=== PATIENT | male | born 1980 | race Caucasian/White ===

== ENCOUNTER 2018-10-18 05:44 | Observation (INO) | payer OTHER ==
[2018-10-18] MEDS ORDERED: SODIUM CHLORIDE 0.9% 1,000 ML IV STA (06:06)
[2018-10-18] MEDS ORDERED: ONDANSETRON 4 MG/2 ML VIAL IVP STA (06:06)
[2018-10-18] MEDS ORDERED: MORPHINE SULFATE 4 MG/ML SYRINGE IV STA (06:06)
--- NOTE | 2018-10-18 06:06 | ED ---
Nausea/Vomiting/Diarrhea HPI - General Chief complaint: Nausea/Vomiting/Diarrhea Stated complaint: Vomiting Source: patient Mode of arrival: ambulatory - History of Present Illness Initial comments: Miles is a 38 her old job and a presents the emergency department today for evaluation of persistent abdominal pain. Patient was seen and evaluated and outside hospital 2 days ago, he had labs as well as abdominal CT and was diagnosed with colitis. Patient was discharged home on Augmentin and Zofran. Patient reports he's been compliant with these medications but has had persistent abdominal pain. Patient reports the pain is not getting any worse but is not getting any better. He has persistent nausea, decreased appetite, decreased by mouth intake, he reports he had one loose stool earlier today. - Related Data Home Medications Medication Instructions Recorded Confirmed Amoxic-Pot Clav 875-125Mg 1 tab PO Q12HR 10/18/18 10/18/18 [Augmentin 875-125] Ondansetron Odt [Zofran Odt] 4 mg PO Q8H PRN 10/18/18 10/18/18 Allergies Allergy/AdvReac Type Severity Reaction Status Date / Time No Known Allergies Allergy Verified 10/18/18 07:25 Review of Systems ROS Statement: Those systems with pertinent positive or pertinent negative responses have been documented in the HPI. ROS Other: All systems not noted in ROS Statement are negative. Past Medical History Past Medical History: No Reported History History of Any Multi-Drug Resistant Organisms: None Reported Additional Past Surgical History / Comment(s): right eye surgery. Smoking Status: Former smoker Past Alcohol Use History: Daily Past Drug Use History: Marijuana General Exam - General Exam Comments Initial Comments: Physical Exam GENERAL: Appears uncomfortable, pale HENT: Normocephalic, Atraumatic. EYES: PERRL, EOMI PULMONARY: Unlabored respirations. No audible rales rhonchi or wheezing was noted. CARDIOVASCULAR: There is a regular rate and rhythm without any murmurs gallops or rubs. ABDOMEN: Soft and nontender with normal bowel sounds. SKIN: Skin is clear with no lesions or rashes and otherwise unremarkable. : Deferred NEUROLOGIC: Patient is alert and oriented x3. Moving all extremities spontaneously MUSCULOSKELETAL: Normal extremities with adequate strength and full range of motion. No lower extremity swelling or edema. No calf tenderness. PSYCHIATRIC: Normal psychiatric evaluation Course Vital Signs 10/18/18 10/18/18 05:45 06:18 Temperature 97.7 F Pulse Rate 78 69 Respiratory 18 14 Rate Blood Pressure 144/90 138/80 O2 Sat by Pulse 100 Oximetry Medical Decision Making - Medical Decision Making The patient was seen and evaluated, history is obtained from the patient and review of medical records from outside facility Patient with a known diagnosis of colitis on computed tomography scan presenting with persistent pain Repeat labs and KUB were ordered Labs resulted with mild leukocytosis, there is significant elevation in lipase greater than 1000 concerning for acute pancreatitis KUB x-rays concerning for ileus Given the patient's symptoms and diagnosis of acute pancreatitis I do feel he warrants admission to the hospital for IV fluids, pain management. This plan was discussed with the patient who is agreeable. Patient does not have a primary care physician will be admitted to the [facility]. De La Cruz - Lab Data Result diagrams: 10/18/18 06:11 10/18/18 06:11 Lab Results 10/18/18 10/18/18 10/18/18 Range/Units 06:11 06:11 06:11 WBC 10.9 H (3.8-10.6) k/uL RBC 4.35 (4.30-5.90) m/uL Hgb 13.6 (13.0-17.5) gm/dL Hct 40.9 (39.0-53.0) % MCV 93.9 (80.0-100.0) fL MCH 31.3 (25.0-35.0) pg MCHC 33.3 (31.0-37.0) g/dL RDW 13.0 (11.5-15.5) % Plt Count 297 (150-450) k/uL Neutrophils % 82 % Lymphocytes % 11 % Monocytes % 6 % Eosinophils % 0 % Basophils % 0 % Neutrophils # 8.9 H (1.3-7.7) k/uL Lymphocytes # 1.2 (1.0-4.8) k/uL Monocytes # 0.6 (0-1.0) k/uL Eosinophils # 0.0 (0-0.7) k/uL Basophils # 0.0 (0-0.2) k/uL Sodium 140 (137-145) mmol/L Potassium 4.0 (3.5-5.1) mmol/L Chloride 107 (98-107) mmol/L Carbon Dioxide 23 (22-30) mmol/L Anion Gap 10 mmol/L BUN 13 (9-20) mg/dL Creatinine 0.85 (0.66-1.25) mg/dL Est GFR (CKD-EPI)AfAm >90 (>60 ml/min/1.73 sqM) Est GFR (CKD-EPI)NonAf >90 (>60 ml/min/1.73 sqM) Glucose 118 H (74-99) mg/dL Plasma Lactic Acid Sylvain 2.0 (0.7-2.0) mmol/L Calcium 9.6 (8.4-10.2) mg/dL Total Bilirubin 1.3 (0.2-1.3) mg/dL AST 48 (17-59) U/L ALT 34 (21-72) U/L Alkaline Phosphatase 45 (38-126) U/L Total Protein 7.2 (6.3-8.2) g/dL Albumin 4.5 (3.5-5.0) g/dL Lipase 1035 H (23-300) U/L Disposition Clinical Impression: Pancreatitis, Ileus Disposition: ADMITTED IP TO THIS HOSP Condition: Stable Is patient prescribed a controlled substance at d/c from ED?: No Referrals: None,Stated [Primary Care Provider] - 1-2 days
[2018-10-18 06:35] LABS: Basophils % (A) 0 %; Eosinophils % (A) 0 %; HCT 40.9 % (39.0-53.0); HGB 13.6 gm/dL (13.0-17.5); Lymphocytes # (A) 1.2 k/uL (1.0-4.8); Lymphocytes % (A) 11 %; MCH 31.3 pg (25.0-35.0); MCHC 33.3 g/dL (31.0-37.0); MCV 93.9 fL (80.0-100.0); Mean Platelet Volume 6.6; Monocytes # (A) 0.6 k/uL (0-1.0); Monocytes % (A) 6 %; Neutrophils # (A) 8.9 k/uL (1.3-7.7); Neutrophils % (A) 82 %; Platelet Count 297 k/uL (150-450); RBC 4.35 m/uL (4.30-5.90); WBC 10.9 k/uL (3.8-10.6)
[2018-10-18 06:47] LABS: ALT 34 U/L (21-72); AST 48 U/L (17-59); African American GFR (CKD) >90 (>60 ml/min/1.73 sqM); Albumin 4.5 g/dL (3.5-5.0); Alkaline Phosphatase 45 U/L (38-126); Anion Gap 10 mmol/L; Blood Urea Nitrogen 13 mg/dL (9-20); Calcium 9.6 mg/dL (8.4-10.2); Carbon Dioxide 23 mmol/L (22-30); Chloride 107 mmol/L (98-107); Glucose 118 mg/dL (74-99); Sodium 140 mmol/L (137-145); Total Bilirubin 1.3 mg/dL (0.2-1.3); Total Protein 7.2 g/dL (6.3-8.2)
--- NOTE | 2018-10-18 07:12 | XR ---
EXAM: XR Abdomen, 1 View CLINICAL HISTORY: abdominal pain TECHNIQUE: Frontal upright view of the abdomen/pelvis. COMPARISON: No relevant prior studies available. FINDINGS: No free air. Air-fluid levels noted in nondilated bowel loops in the lower abdomen and pelvis. No suspicious calcifications. Osseous structures are unremarkable. IMPRESSION: No free air. Air-fluid levels in nondilated bowel loops in lower abdomen and pelvis may represent ileus versus enteritis. No radiographic evidence of ashley bowel obstruction. No suspicious calcifications.
[2018-10-18] MEDS ORDERED: NALOXONE 0.4 MG/ML 1 ML VIAL IV PRN (07:45)
[2018-10-18] MEDS ORDERED: HYDROmorphone 0.5 MG/0.5 ML SYRINGE IVP PRN (07:45)
[2018-10-18] MEDS: SODIUM CHLORIDE 0.9% 1,000 ML IV SCH ×3 (07:53→18:01)
[2018-10-18 08:09] LABS: Appearance,Urine Clear (Clear); Bilirubin,Urine Negative (Negative); Blood,Urine Negative (Negative); Color,Urine Yellow; Glucose,Urine (UA) Negative (Negative); Ketones,Urine 2+ (Negative); Leukocyte Esterase,Urine Negative (Negative); Nitrite,Urine Negative (Negative); PH, Urine 8.5 (5.0-8.0); Protein,Urine Trace (Negative); Specific Gravity,Urine 1.022 (1.001-1.035); Urobilinogen,Urine <2.0 mg/dL (<2.0)
--- NOTE | 2018-10-18 08:32 | US ---
EXAMINATION TYPE: US gallbladder DATE OF EXAM: 10/18/2018 COMPARISON: NONE CLINICAL HISTORY: acute pancreatitis and ileus. acute pancreatitis and ileus, abdominal pain and vom iting EXAM MEASUREMENTS: Liver Length: 14.1 cm Gallbladder Wall: 0.3 cm CBD: 0.3 cm Right Kidney: 12.5 x 3.7 x 4.2 cm Pancreas: duct = 0.3cm Liver: wnl Gallbladder: no evidence of stones Evidence for sonographic Rodriguez's sign: no CBD: appears wnl Right Kidney: cystic area upper pole = 1.7 x 1.4 x 2.0cm Visualized pancreas is unremarkable. Technologist marked a 1.7 cm simple appearing cyst anteriorly up per pole of the right kidney. IMPRESSION: No acute findings identified. No complication related to acute pancreatitis seen on image s saved.
[2018-10-18] MEDS: PANTOPRAZOLE 40 MG/10 ML VIAL IV SCH (10:37)
[2018-10-18] MEDS ORDERED: ONDANSETRON ODT 4 MG TAB PO PRN (11:16)
[2018-10-18] MEDS: ONDANSETRON 4 MG/2 ML VIAL IVP PRN ×2 (12:42→18:18)
[2018-10-18] MEDS: MORPHINE SULFATE 4 MG/ML SYRINGE IV PRN ×2 (12:43→18:18)
--- NOTE | 2018-10-18 13:51 | HP ---
HISTORY AND PHYSICAL CHIEF COMPLAINT: Abdominal pain for 2 days. HISTORY OF PRESENT ILLNESS: This is the first admission for this 38-year-old white male. Two days ago he developed generalized abdominal pain, went to the emergency room at [facility] and was told that he had "colitis." He was given medication, but the pain continued, and actually grew worse. He had diarrhea once, but he had several episodes of nausea and vomiting. He came to emergency room here. His lipase was markedly elevated along with the white count. History is not unusual. He has had no hematemesis, melena, hematochezia, fever, chills, history of pancreatitis or GI disease in the past. Gallbladder does not seem to be a culprit. He states that he does drink quite a bit of alcohol, but he does not quantify it, has never had ulcer before. REVIEW OF SYSTEMS: He has had no other symptoms. PAST MEDICAL HISTORY, FAMILY HISTORY, PERSONAL AND SOCIAL HISTORIES: Reveal that he is not on any medicine and he is not allergic to any. He has had no surgery. He does not smoke. He works as a cook. PHYSICAL EXAMINATION: Blood pressure is 138/90 with a pulse of 93, respirations of 36. He is afebrile. In general, he appeared to be well developed, well nourished, and acutely uncomfortable. Skin was dry and skin color is normal. Head, ears, eyes, nose, mouth, and throat were normal. Neck veins are not distended. Thyroid is not enlarged. Chest is clear. Cardiac exam is normal and the abdomen is soft and he is tender over the epigastrium, but seems to be a little bit more tender in the lower abdomen. There are no masses. IMPRESSION: 1. Acute abdominal pain. 2. ? of pancreatitis. 3. ? colitis. PLAN: 1. Bed rest. 2. IV fluids. 3. Analgesics. 4. GI consult. MMODL / IJN: [id number] /
[2018-10-18 17:59] VITALS: BMI 19.3
--- NOTE | 2018-10-18 22:26 | P.PN ---
Subjective Progress Note Date: 10/18/18 Attempted to see the patient today for consultation and the patient was not in his room, we'll see the patient tomorrow. Objective - Vital Signs Vital signs: Vital Signs Temp 97.7 F 10/18/18 20:51 Pulse 88 10/18/18 20:51 Resp 18 10/18/18 20:51 BP 138/86 10/18/18 20:51 Pulse Ox 100 10/18/18 20:51 Intake & Output 10/18/18 10/18/18 10/19/18 06:59 18:59 06:59 Weight 61.235 kg - Labs CBC & Chem 7: 10/18/18 06:11 10/18/18 06:11 Labs: Abnormal Lab Results - Last 24 Hours (Table) 10/18/18 10/18/18 10/18/18 Range/Units 06:11 06:11 07:50 WBC 10.9 H (3.8-10.6) k/uL Neutrophils # 8.9 H (1.3-7.7) k/uL Glucose 118 H (74-99) mg/dL Lipase 1035 H (23-300) U/L Urine pH 8.5 H (5.0-8.0) Urine Protein Trace H (Negative) Urine Ketones 2+ H (Negative)
[2018-10-19] MEDS: SODIUM CHLORIDE 0.9% 1,000 ML IV SCH ×5 (06:04→21:03)
[2018-10-19] MEDS: PANTOPRAZOLE 40 MG/10 ML VIAL IV SCH (10:05)
[2018-10-19 12:09] LABS: Basophils % (A) 0 %; Eosinophils % (A) 0 %; HCT 39.1 % (39.0-53.0); HGB 12.6 gm/dL (13.0-17.5); Lymphocytes # (A) 2.2 k/uL (1.0-4.8); Lymphocytes % (A) 27 %; MCHC 32.4 g/dL (31.0-37.0); MCV 95.7 fL (80.0-100.0); Mean Platelet Volume 6.6; Monocytes # (A) 0.5 k/uL (0-1.0); Monocytes % (A) 6 %; Neutrophils # (A) 5.2 k/uL (1.3-7.7); Neutrophils % (A) 64 %; Platelet Count 246 k/uL (150-450); RBC 4.08 m/uL (4.30-5.90); RDW 12.8 % (11.5-15.5)
[2018-10-19 13:59] VITALS: RESP 16
[2018-10-19] MEDS: ONDANSETRON 4 MG/2 ML VIAL IVP PRN (16:10)
--- NOTE | 2018-10-19 19:16 | PN ---
PROGRESS NOTE CHIEF COMPLAINT: Pancreatitis. HISTORY OF PRESENT ILLNESS: This gentleman is feeling a lot better. Pain has greatly subsided. He is not nauseated or vomiting. PHYSICAL EXAM: Abdomen is flat, nontender. Chest is clear. Cardiac exam is normal. IMPRESSION: Pancreatitis, etiology unknown. PLAN: Keep n.p.o. until he is seen by Gastroenterology in the event that they wanted to do an endoscopy to rule out ulcer disease. Otherwise, he can eat and progress his activity. MMODL / IJN: [id number] /
--- NOTE | 2018-10-19 22:23 | P.CONS ---
History of Present Illness - Reason for Consult Consult date: 10/19/18 Pancreatitis Requesting physician: Hunter De La Cruz - Chief Complaint Abdominal pain - History of Present Illness 38-year-old male who presented to the hospital with complaints of abdominal pain. Patient had been recently diagnosed with colitis approximately 3 weeks a go and treated with Augmentin. He reports developing dull pain at home prior to presentation. The pain was constant and progressive in intensity, and he describes it as of retching in quality. The patient had associated nausea and decreased oral intake. Patient denies any family history of pancreatitis. Patient still has his gallbladder. Reports drinking at least 3 beers daily for years. Bowel movements are usually one to 2 daily, with 3 nonbloody bowel movements today. He does report use aspirin occasionally for pain, but states this is a couple times per month. Laboratory evaluation on presentation was significant for WBC 11.9, hemoglobin 13.6, platelet count 297,000, total biliru bin 1.3, alkaline phosphatase 45, AST 48, ALT 34 and lipase 1035. Ultrasound of the abdomen was negative for cholelithiasis with a CBD measured at 3 mm. Patient was treated with IV fluid hydration and pain control and is currently reporting great improvement in his pain and asking for diet to be advanced. Review of Systems REVIEW OF SYSTEMS: CONSTITUTIONAL: Denies any fevers, chills, weight change or fatigue. CARDIOVASCULAR: Denies any chest pain, palpitations high or low blood pressures RESPIRATORY: Denies any shortness of breath, hemoptysis or cough. GENITOURINARY: No dysuria or hematuria. MUSCULOSKELETAL: No weakness reported. SKIN: Denies any new rashes or lesions, jaundice or pallor. PSYCHIATRIC: Denies any depression or anxiety. NEUROLOGY: Denies headache, denies any new focal deficits. EARS/NOSE/THROAT: No recent hearing change, congestion, nasal discharge or sore throat. EYES: No pain in eyes, discharge or change in vision. GASTROINTESTINAL: As per HPI. Past Medical History Past Medical History: Eye Disorder, GERD/Reflux, Pneumonia Additional Past Medical History / Comment(s): R eye glaucoma d/t trauma, pneumonia as a child. History of Any Multi-Drug Resistant Organisms: None Reported Additional Past Surgical History / Comment(s): Right eye surgery d/t glaucoma, wisdom teeth extractions. Past Anesthesia/Blood Transfusion Reactions: No Reported Reaction Smoking Status: Former smoker Additional History: Family history: Reviewed with the patient and noncontributory to current medical presentation, denies any significant history of pancreatic disorders. - Past Family History Father Family Medical History: No Reported History Mother Family Medical History: No Reported History Medications and Allergies Home Medications Medication Instructions Recorded Confirmed Type Amoxic-Pot Clav 875-125Mg 1 tab PO Q12HR 10/18/18 10/18/18 History [Augmentin 875-125] Ondansetron Odt [Zofran Odt] 4 mg PO Q8H PRN 10/18/18 10/18/18 History Allergies Allergy/AdvReac Type Severity Reaction Status Date / Time No Known Allergies Allergy Verified 10/18/18 07:25 Physical Exam Vitals: Vital Signs Temp Pulse Pulse Resp BP Pulse Ox 10/19/18 21:00 98.6 F 58 L 16 132/85 97 10/19/18 15:54 68 58 L 16 10/19/18 12:01 98.5 F 58 L 16 142/83 100 10/19/18 08:30 68 18 10/19/18 05:39 97.9 F 68 18 115/67 99 Intake and Output 10/19/18 10/19/18 10/19/18 06:59 14:59 22:59 Intake Total 1600 0 Balance 1600 0 Intake: Intake, IV Titration 1600 Amount Sodium Chloride 0.9% 1, 1600 000 ml @ 200 mls/hr IV . Q5H [facility] Rx#:[id number] Oral 0 Other: Voiding Method Toilet Toilet # Voids 3 3 On physical examination, patient appears comfortable in no apparent distress. HEAD: Normocephalic, atraumatic. EYES: No scleral icterus. No conjunctival injection. MOUTH: No lesions, tongue midline. NECK: Trachea midline, no gross abnormalities. CHEST: Clear to auscultation with no wheezing or rhonchi appreciated. HEART: Regular rate and rhythm. ABDOMEN: Soft, mildly tender to deep palpation. Bowel sounds are positive. No organomegaly. No guarding or rigidity. EXTREMITIES: No pedal edema. SKIN: No rashes, no jaundice. NEUROLOGIC: Alert and oriented x3. No focal deficits. Results CBC & Chem 7: 10/19/18 11:51 10/18/18 06:11 Labs: Abnormal Lab Results - Last 24 Hours (Table) 10/19/18 10/19/18 Range/Units 11:51 11:51 RBC 4.08 L (4.30-5.90) m/uL Hgb 12.6 L (13.0-17.5) gm/dL Lipase 342 H (23-300) U/L US - abdomen: report reviewed (Ultrasound of the abdomen with no cholelithiasis noted and CBD 0.3 cm.) Assessment and Plan (1) Pancreatitis Narrative/Plan: 38-year-old presenting with abdominal pain and found to have acute uncomplicated pancreatitis. Treated with pain control and fluid hydration he is reporting that his symptoms have improved. He denies any history of gallbladder pathology, with ultrasound of the abdomen negative for cholelithiasis or CBD dilation. He does drink 3 beers daily, for years now. Current Visit: Yes Status: Acute Code(s): K85.90 - ACUTE PANCREATITIS WITHOUT NECROSIS OR INFECTION, UNSP SNOMED Code(s): 86582749 Plan: Supportive care Low-fat diet ordered LM, Triglyceride level, and IgG4 level will be ordered Continue fluid hydration Encourage ambulation Have discussed the arms of alcohol to the pancreas and recommended abstinence to the patient Continue to monitor clinically Okay for discharge tomorrow if continues to clinically improve Thank you for allowing us to participate in the care of the patient we will continue to follow
[2018-10-20] MEDS: SODIUM CHLORIDE 0.9% 1,000 ML IV SCH ×3 (02:33→08:58)
[2018-10-20 05:13] VITALS: BP 122/73; PULSE 75; TEMP 98.1
[2018-10-20] MEDS: PANTOPRAZOLE 40 MG/10 ML VIAL IV SCH (08:58)
--- NOTE | 2018-10-21 | DS ---
DISCHARGE SUMMARY CHIEF COMPLAINT: Abdominal pain. HISTORY OF PRESENT ILLNESS AND PHYSICAL EXAM: Details of this man's history and physical can be found in the initial workup. LABORATORY STUDIES: While he was in the hospital, he had laboratory studies, details of which can be found in the laboratory section of his chart. COURSE IN THE HOSPITAL: After admission, he was placed at bedrest, started on intravenous fluids and analgesics. His pain is slowly improving and lipase came down. He was seen by Gastroenterology, but no scope was recommended. He is doing well. It was felt he could go home on October 20. He will go home on his usual diet and activity and no medications and be seen in the office for followup. FINAL DIAGNOSES: Acute pancreatitis, idiopathic. OPERATIONS: None. CONSULTATIONS: Gastroenterology. He is improved. KEVINODL / IJN: [id number] /
[2018-10-21 10:57] LABS: IgG Subclass 3 36.4 mg/dL (11.0-85.0)
== END 2018-10-20 14:37 | disposition home or self-care (01) ==
LOC: EC 05:44 → 4MS4W 07:45 → INTOOBSV 07:45 → 3NMEDONC 17:02 → UNDODISIN 10-20 14:37
PROVIDERS: ADMIT Family Medicine; ATTEND Family Medicine
DX: K85.00 Idiopathic acute pancreatitis without necrosis or infection (principal); K52.9 Noninfective gastroenteritis and colitis, unspecified; K21.9 Gastro-esophageal reflux disease without esophagitis; H40.9 Unspecified glaucoma; Z87.891 Personal history of nicotine dependence; Z87.01 Personal history of pneumonia (recurrent)
CPT/HCPCS: 96376 ×4; 96361 ×3; 96374; 96375; 99285; 36415; 80053; 83605; 83690 ×2; 84478; 85025 ×2; 81003; 87324; 82787; 86038; 74018; 76705; G0378 ×3; J2270; J2405 ×2; C9113 ×3

== ENCOUNTER → 2022-08-09 | Outpatient (CLI) | payer OTHER | END | disposition home or self-care (01) | LOC: LABPAT 11:39 | PROVIDERS: ATTEND Surgery | DX: Z01.812 Encounter for preprocedural laboratory examination (principal) | CPT/HCPCS: 85025; 86850; 86900; 86901 ==

== ENCOUNTER 2022-08-17 05:55 | Day surgery (SDC) | payer OTHER ==
[2022-08-09 16:55] LABS: Basophils # (A) 0.02 X 10*3/uL (0.00-0.10); Basophils % (A) 0.3 %; Eosinophils # (A) 0.08 X 10*3/uL (0.04-0.35); Eosinophils % (A) 1.3 %; HCT 45.2 % (39.6-50.0); HGB 14.6 g/dL (13.0-17.0); Immature Grans, Automated 0.3 %; Lymphocytes # (A) 2.26 X 10*3/uL (0.90-5.00); MCH 31.6 pg (27.0-32.0); MCHC 32.3 g/dL (32.0-37.0); MCV 97.8 fL (80.0-97.0); Mean Platelet Volume 10.2 fL (9.5-12.2); Monocytes # (A) 0.37 X 10*3/uL (0.20-1.00); Monocytes % (A) 6.1 %; NRBC Per 100 WBC 0 /100 WBCS (0.0-0.0); Neutrophils # (A) 3.36 X 10*3/uL (1.80-7.70); Platelet Count 327 X 10*3/uL (140-440); RBC 4.62 X 10*6/uL (4.40-5.60); RDW 12.5 % (11.5-14.5); WBC 6.11 X 10*3/uL (4.50-10.00)
[2022-08-11 15:55] VITALS: BMI 21.2
[~2022-08-17 05:55] MED LIST: ACETAMINOPHEN TAB 500 MG TAB PO PRN; HEPARIN SODIUM,PORCINE/PF 5,000 UNIT/0.5 ML SYRINGE SQ PRN
[2022-08-17] MEDS ORDERED: LIDOCAINE 1% (10MG/ML) FOR IV START INTRADERMA PRN (06:12)
[2022-08-17] MEDS ORDERED: MIDAZOLAM 2 MG/2 ML VIAL IV PRN (06:12)
[2022-08-17] MEDS ORDERED: LACTATED RINGERS 1,000 ML IV SCH (06:12)
[2022-08-17] MEDS ORDERED: DEXAMETHASONE SOD PHOSPHATE 4 MG/ML 1 ML VIAL IV ONE (06:12)
[2022-08-17] MEDS ORDERED: ONDANSETRON 4 MG/2 ML VIAL IVP ONE (06:12)
[2022-08-17] MEDS ORDERED: MIDAZOLAM 2 MG/2 ML VIAL IVP ONE (07:06)
[2022-08-17] MEDS ORDERED: GLYCOPYRROLATE 0.2 MG/ML 2 ML VIAL ONE (07:46)
[2022-08-17] MEDS ORDERED: SODIUM CHLORIDE 0.9% (PF) 10 ML VIAL ONE (07:46)
[2022-08-17] MEDS ORDERED: ROPIVACAINE 5 MG/ML 30 ML VIAL ONE (07:46)
[2022-08-17] MEDS ORDERED: SUCCINYLCHOLINE CHLORIDE 200 MG/10 ML VIAL IV ONE (07:46)
[2022-08-17] MEDS ORDERED: ROCURONIUM 10 MG/ML (5 ML VIAL) IV ONE (07:46)
[2022-08-17] MEDS ORDERED: DEXAMETHASONE SOD PHOSPHATE 4 MG/ML 1 ML VIAL ONE (07:46)
[2022-08-17] MEDS ORDERED: LIDOCAINE 2% INJ 20 MG/ML (2 ML VIAL) ONE (07:46)
[2022-08-17] MEDS ORDERED: NEOSTIGMINE 1 MG/ML 10 ML VIAL ONE (07:46)
[2022-08-17] MEDS ORDERED: PROPOFOL 10 MG/ML 20 ML VIAL IV ONE (07:46)
[2022-08-17] MEDS ORDERED: fentaNYL (PF) 50 MCG/ML 2 ML AMP ONE (07:46)
[2022-08-17] MEDS ORDERED: MIDAZOLAM 2 MG/2 ML VIAL ONE (07:46)
[2022-08-17] MEDS ORDERED: KETOROLAC 15 MG/ML 1 ML VIAL ONE (07:46)
[2022-08-17] MEDS ORDERED: BUPIVACAINE (PF) 0.25% 30 ML VIAL SQ ONE (08:10)
--- NOTE | 2022-08-17 08:38 | P.OP ---
Date of Procedure: 08/17/22 Preoperative Diagnosis: Left inguinal hernia Postoperative Diagnosis: Left inguinal hernia Procedure(s) Performed: Laparoscopic robotic system repair of left inguinal hernia Anesthesia: VEL Surgeon: Renato Schulz Estimated Blood Loss (ml): 5 Pathology: none sent Condition: stable Disposition: PACU Description of Procedure: The patient's placed on the operating table in the supine position. The patient received general anesthesia. The patient's abdomen was prepped and draped in usual sterile fashion. The skin was anesthetized 1% local Xylocaine at the incision sites. Using an 11 blade a skin incision was made at the umbilicus. The fascia was grasped with a Slaughters and then the peritoneal cavity was entered with the Veress needle. Position of the Veress needle was confirmed with a positive drop test. After adequate insufflation a 5 mm trocar was placed into the peritoneal cavity. The Laparoscope was placed the peritoneal cavity. And a robotic 8 mm trocar was placed in the right lateral position and then another 8 mm robotic trochars placed in the left lateral position. The original 5 mm trocar was exchanged for a 12 mm trocar. The patient was placed in reverse Trendelenburg and then the patient was docked to the robot. Next the peritoneum over top of the hernia was incised and then using blunt and sharp dissection and electrocautery the hernia sac was dissected free from the floor of the inguinal canal. The hernia sac was completely reduced into the peritoneal cavity. And then using the [employer] mesh the hernia was repaired. The peritoneum was then sutured with 20V lock suture. The patient was then undocked the robot. The needle was withdrawn from the peritoneal cavity. The umbilical trocar site was closed with 0 Ethibond suture. The skin was closed interrupted 3-0 Monocryl suture. Dermabond dressing was applied. Patient was sent to recovery in stable condition.
[2022-08-17] MEDS: HYDROmorphone 0.5 MG/0.5 ML SYRINGE IVP PRN ×2 (08:54→09:05)
[2022-08-17 08:58] VITALS: TEMP 97.4
[2022-08-17] MEDS ORDERED: IV FLUID CONTINUATION 1,000 ML IV ONE (09:40)
[2022-08-17 10:30] VITALS: BP 119/75; PULSE 69; RESP 20
--- NOTE | 2022-08-17 10:52 | P.ANPRN ---
Procedure Note - Anesthesia - Nerve Block Performed Bilateral Erector Spinae Single Time Out Performed: Yes Date of Procedure: 08/17/22 Procedure Start Time: :05 Procedure Stop Time: 07:10 Location of Patient: PreOp Indication: Acute Post-Operative Pain, Requested by Surgeon Sedation Type: Sedate with meaningful contact maintained Preparation: Sterile Prep Position: Prone Needle Types: Pajunk Needle Gauge: 21 Ultrasound used to visualize needle placement: Yes Ultrasound used to observe medication spread: Yes Blood Aspirated: No Pain Paresthesia on Injection Noted: No Resistance on Injection: Normal Image Stored and Saved: Yes Events: Uneventful and Well Tolerated (ropi .5% 20cc plus dexamethasone 4mg given bilaterally at L1)
== END 2022-08-17 10:35 | disposition home or self-care (01) ==
LOC: OR 05:55
PROVIDERS: ATTEND Surgery
DX: K40.90 Unilateral inguinal hernia, without obstruction or gangrene, not specified as recurrent (principal); K21.9 Gastro-esophageal reflux disease without esophagitis; F10.20 Alcohol dependence, uncomplicated; F12.90 Cannabis use, unspecified, uncomplicated; Z87.891 Personal history of nicotine dependence; H40.9 Unspecified glaucoma; Z79.899 Other long term (current) drug therapy
CPT/HCPCS: 49650; 64999; S2900; 85025; 86850; 86900; 86901

== ENCOUNTER 2023-04-17 11:29 | Emergency (ER) | payer OTHER ==
[2023-04-17] MEDS ORDERED: SODIUM CHLORIDE 0.9% 1,000 ML IV STA ×2 (11:49→12:33)
[2023-04-17] MEDS ORDERED: HYDROmorphone 0.5 MG/0.5 ML SYRINGE IVP STA (11:54)
[2023-04-17] MEDS ORDERED: KETOROLAC 15 MG/ML 1 ML VIAL IVP STA (11:54)
[2023-04-17] MEDS ORDERED: ONDANSETRON 4 MG/2 ML VIAL IVP STA (11:54)
--- NOTE | 2023-04-17 11:59 | ED ---
Abdominal Pain HPI - General Chief Complaint: Nausea/Vomiting/Diarrhea Stated Complaint: abd pain N/V Time Seen by Provider: 04/17/23 11:48 Source: patient, family, RN notes reviewed Mode of arrival: wheelchair Limitations: no limitations - History of Present Illness Initial Comments: This is a 42-year-old male who presents to the emergency department for abdominal pain, nausea, and vomiting. States that since about 8 PM last night he has had upper abdominal cramping, nausea, vomiting, and diarrhea. He has had chills but has not measured any fevers. He had pancreatitis about 5 years ago, but is unsure if symptoms feel the same. Also reports a sinus infection with coughing and congestion starting 4-5 days ago. 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 MD Complaint: abdominal pain - Related Data Home Medications Medication Instructions Recorded Confirmed Latanoprost Ophth [Xalatan 0.005%] 1 drop BOTH EYES DAILY 08/11/22 08/17/22 Timolol [Betimol 0.5% Ophth Soln] 1 drop BOTH EYES DAILY 08/11/22 08/17/22 Previous Rx's Medication Instructions Recorded Acetaminophen Tab [Tylenol] 650 mg PO Q6H #30 tab 08/17/22 Docusate [Colace] 100 mg PO BID #20 capsule 08/17/22 Ibuprofen [Motrin] 600 mg PO Q6HR PRN #40 tab 08/17/22 oxyCODONE HCL [OxyIR] 5 mg PO Q6H PRN 3 Days #10 tab 08/17/22 Metoclopramide [Reglan] 10 mg PO Q6H PRN #30 tab 04/17/23 Ondansetron Odt [Zofran Odt] 4 mg PO Q8HR PRN #30 tab 04/17/23 Allergies Allergy/AdvReac Type Severity Reaction Status Date / Time No Known Allergies Allergy Verified 04/17/23 11:45 Review of Systems ROS Statement: Those systems with pertinent positive or pertinent negative responses have been documented in the HPI. ROS Other: All systems not noted in ROS Statement are negative. 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 Hx Pneumonia as a child. History of Any Multi-Drug Resistant Organisms: None Reported Additional Past Surgical History / Comment(s): Right eye surgery due to glaucoma, wisdom teeth extracted. Past Anesthesia/Blood Transfusion Reactions: No Reported Reaction Past Psychological History: No Psychological Hx Reported Smoking Status: Former smoker Past Alcohol Use History: Daily Past Drug Use History: Marijuana - Past Family History Father Family Medical History: No Reported History Mother Family Medical History: No Reported History General Exam Limitations: no limitations General appearance: alert, in distress Head exam: Present: atraumatic, normocephalic, normal inspection Respiratory exam: Present: normal lung sounds bilaterally. Absent: respiratory distress, wheezes, rales, rhonchi, stridor Cardiovascular Exam: Present: regular rate, normal rhythm, normal heart sounds. Absent: systolic murmur, diastolic murmur, rubs, gallop, clicks GI/Abdominal exam: Present: soft, tenderness (Epigastric), normal bowel sounds. Absent: distended Neurological exam: Present: alert, oriented X3, CN II-XII intact Psychiatric exam: Present: normal affect, normal mood Skin exam: Present: warm, dry, intact, normal color. Absent: rash Course Vital Signs 04/17/23 04/17/23 04/17/23 11:38 12:44 16:14 Temperature 97.4 F L 98.6 F 98.8 F Pulse Rate 68 68 93 Respiratory 20 18 18 Rate Blood Pressure 117/62 117/68 102/69 O2 Sat by Pulse 100 100 98 Oximetry Medical Decision Making - Medical Decision Making This is a 42-year-old male who presents to the emergency department for abdominal pain, nausea, and vomiting. Was pt. sent in by a medical professional or institution? @ -No Did you speak to anyone other than the patient for history? @ -No Did you review nursing and triage notes? @ -Yes, and I agree, it is accurate with regards to the patient's symptoms. Were old charts reviewed? @ -No Differential Diagnosis? @ -Differential Abdominal Pain Men: Appendicitis, cholecystitis, diverticulosis, ischemic bowel, pancreatitis, hepatitis, UTI, gastroenteritis, AAA, incarcerated hernia, bowel obstruction, constipation, inflammatory bowel, hepatitis, peptic ulcer disease, splenic infarction, perforated viscus, testicular torsion, this is not meant to be an all-inclusive list EKG interpreted by me (3pts min.)? @ -Not obtained X-rays interpreted by me (1pt min.)? @ -Not obtained CT interpreted by me (1pt min.)? @ -CT scan of the abdomen and pelvis obtained. My interpretation identifies no evidence of bowel wall thickening or free air. U/S interpreted by me (1pt. min.)? @ -Gallbladder US obtained. My interpretation identifies no evidence of cholelithiasis. What testing was considered but not performed? (CT, X-rays, U/S, labs)? Why? @ -None What meds were considered but not given? Why? @ -None Did you discuss the management of the patient with other professionals? @ -No Did you reconcile home meds? @ -No Was smoking cessation discussed for >3mins.? @ -No Was critical care preformed (if so, how long)? @ -No Were there social determinants of health that impacted care today? How? (Homelessness, low income, unemployed, alcoholism, drug addiction, transportation, low edu. Level, literacy, decrease access to med. care, assisted, rehab)? @ -No Was there de-escalation of care discussed even if they declined? (Discuss DNR or withdrawal of care, Hospice)? @ -No What co-morbidities impacted this encounter? (DM, HTN, Smoking, COPD, CAD, Cancer, CVA, Hep., AIDS, mental health diagnosis, sleep apnea, morbid obesity)? @ -GERD, alcohol use Was patient admitted / discharged? @ -Discharged. Lab work obtained revealing leukocytosis and an elevated lactic acid of 5.7. Lab work was otherwise fairly unremarkable. Covid, influenza, and RSV testing were negative. Gallbladder ultrasound obtained revealing no acute process. Given the leukocytosis with elevated lactic acid and the patient's distress, we did proceed with a computed tomography scan of the abdomen and pelvis as well. This revealed a cystic mass in the right kidney without other acute process. This is likely chronic in nature and unrelated to the patient's current symptoms. Repeat lactic acid was WNL at 1.8. Symptoms well controlled in the emergency department and the patient felt stable for discharge home. He was tolerating oral intake at that point. Advised to follow-up on the cystic mass of his kidney with his primary care provider. Prescription for Zofran and Reglan provided with dosing instructions reviewed. Advised to slowly advance his diet as tolerated and remain well-hydrated. Undiagnosed new problem with uncertain prognosis? @ -None Drug Therapy requiring intensive monitoring for toxicity (Heparin, Nitro, Insulin, Cardizem)? @ -None Were any procedures done? @ -None Diagnosis/symptom? @ -Nausea and vomiting, abdominal pain Acute, or Chronic, or Acute on Chronic? @ -Acute Uncomplicated (without systemic symptoms) or Complicated (systemic symptoms)? @ -Uncomplicated Side effects of treatment? @ -None Exacerbation, Progression, or Severe Exacerbation] @ -Not applicable Poses a threat to life or bodily function? @ -No Return precautions reviewed in depth, the patient is instructed to return to the emergency department with any new, worsening, or concerning symptoms. Patient verbalized understanding. This case was discussed in detail with the attending ED physician, Dr. Guerrero. Presentation, findings, and treatment plan discussed in detail as well. - Lab Data Result diagrams: 04/17/23 11:55 04/17/23 11:55 Lab Results 04/17/23 04/17/23 04/17/23 Range/Units 11:55 11:55 11:55 WBC 16.6 H (3.8-10.6) k/uL RBC 4.56 (4.30-5.90) m/uL Hgb 14.7 (13.0-17.5) gm/dL Hct 43.7 (39.0-53.0) % MCV 95.8 (80.0-100.0) fL MCH 32.3 (25.0-35.0) pg MCHC 33.7 (31.0-37.0) g/dL RDW 12.6 (11.5-15.5) % Plt Count 360 (150-450) k/uL MPV 7.8 Neutrophils % 82 % Lymphocytes % 12 % Monocytes % 5 % Eosinophils % 0 % Basophils % 0 % Neutrophils # 13.5 H (1.3-7.7) k/uL Lymphocytes # 1.9 (1.0-4.8) k/uL Monocytes # 0.8 (0-1.0) k/uL Eosinophils # 0.0 (0-0.7) k/uL Basophils # 0.0 (0-0.2) k/uL Sodium 138 (137-145) mmol/L Potassium 4.6 (3.5-5.1) mmol/L Chloride 107 (98-107) mmol/L Carbon Dioxide 14 L (22-30) mmol/L Anion Gap 17 mmol/L BUN 15 (9-20) mg/dL Creatinine 0.72 (0.66-1.25) mg/dL Est GFR (CKD-EPI)AfAm >90 (>60 ml/min/1.73 sqM) Est GFR (CKD-EPI)NonAf >90 (>60 ml/min/1.73 sqM) Glucose 193 H (74-99) mg/dL Lactic Ac Sepsis Rflx Plasma Lactic Acid Sylvain 5.7 H* (0.7-2.0) mmol/L Calcium 10.2 (8.4-10.2) mg/dL Total Bilirubin 1.5 H (0.2-1.3) mg/dL AST 33 (17-59) U/L ALT 47 (4-49) U/L Alkaline Phosphatase 79 (38-126) U/L Total Protein 7.6 (6.3-8.2) g/dL Albumin 4.8 (3.5-5.0) g/dL Amylase 76 (30-110) U/L Lipase 84 (23-300) U/L Influenza Type A (PCR) (Not Detectd) Influenza Type B (PCR) (Not Detectd) RSV (PCR) (Not Detectd) SARS-CoV-2 (PCR) (Not Detectd) 04/17/23 04/17/23 04/17/23 Range/Units 11:55 12:33 15:00 WBC (3.8-10.6) k/uL RBC (4.30-5.90) m/uL Hgb (13.0-17.5) gm/dL Hct (39.0-53.0) % MCV (80.0-100.0) fL MCH (25.0-35.0) pg MCHC (31.0-37.0) g/dL RDW (11.5-15.5) % Plt Count (150-450) k/uL MPV Neutrophils % % Lymphocytes % % Monocytes % % Eosinophils % % Basophils % % Neutrophils # (1.3-7.7) k/uL Lymphocytes # (1.0-4.8) k/uL Monocytes # (0-1.0) k/uL Eosinophils # (0-0.7) k/uL Basophils # (0-0.2) k/uL Sodium (137-145) mmol/L Potassium (3.5-5.1) mmol/L Chloride (98-107) mmol/L Carbon Dioxide (22-30) mmol/L Anion Gap mmol/L BUN (9-20) mg/dL Creatinine (0.66-1.25) mg/dL Est GFR (CKD-EPI)AfAm (>60 ml/min/1.73 sqM) Est GFR (CKD-EPI)NonAf (>60 ml/min/1.73 sqM) Glucose (74-99) mg/dL Lactic Ac Sepsis Rflx Y Plasma Lactic Acid Sylvain 1.8 (0.7-2.0) mmol/L Calcium (8.4-10.2) mg/dL Total Bilirubin (0.2-1.3) mg/dL AST (17-59) U/L ALT (4-49) U/L Alkaline Phosphatase (38-126) U/L Total Protein (6.3-8.2) g/dL Albumin (3.5-5.0) g/dL Amylase (30-110) U/L Lipase (23-300) U/L Influenza Type A (PCR) Not Detected (Not Detectd) Influenza Type B (PCR) Not Detected (Not Detectd) RSV (PCR) Not Detected (Not Detectd) SARS-CoV-2 (PCR) Not Detected (Not Detectd) - Radiology Data Radiology results: report reviewed, image reviewed Disposition Clinical Impression: Nausea and vomiting, Abdominal pain Disposition: HOME SELF-CARE Instructions (If sedation given, give patient instructions): Acute Nausea and Vomiting (ED), Abdominal Pain (ED) Additional Instructions: Return to the emergency department with any new, worsening, or concerning symptoms. You can take the Zofran up to every 8 hours as needed for nausea and vomiting. You can also take the Reglan up to every 6 hours as needed for nausea and vomiting. Slowly advance your diet as tolerated and remain well-hydrated. Follow up with your primary care provider in 1-2 days. Prescriptions: Metoclopramide [Reglan] 10 mg PO Q6H PRN #30 tab PRN Reason: Nausea And Vomiting Ondansetron Odt [Zofran Odt] 4 mg PO Q8HR PRN #30 tab PRN Reason: Nausea And Vomiting Is patient prescribed a controlled substance at d/c from ED?: No Referrals: Aracely Murillo [Primary Care Provider] - 1-2 days Time of Disposition: 15:43
[2023-04-17 12:16] LABS: Basophils % (A) 0 %; Eosinophils % (A) 0 %; HCT 43.7 % (39.0-53.0); HGB 14.7 gm/dL (13.0-17.5); Lymphocytes # (A) 1.9 k/uL (1.0-4.8); Lymphocytes % (A) 12 %; MCH 32.3 pg (25.0-35.0); MCHC 33.7 g/dL (31.0-37.0); MCV 95.8 fL (80.0-100.0); Mean Platelet Volume 7.8; Monocytes # (A) 0.8 k/uL (0-1.0); Monocytes % (A) 5 %; Neutrophils # (A) 13.5 k/uL (1.3-7.7); Neutrophils % (A) 82 %; Platelet Count 360 k/uL (150-450); RBC 4.56 m/uL (4.30-5.90); RDW 12.6 % (11.5-15.5); WBC 16.6 k/uL (3.8-10.6)
[2023-04-17 12:29] LABS: ALT 47 U/L (4-49); AST 33 U/L (17-59); African American GFR (CKD) >90 (>60 ml/min/1.73 sqM); Albumin 4.8 g/dL (3.5-5.0); Alkaline Phosphatase 79 U/L (38-126); Amylase 76 U/L (30-110); Anion Gap 17 mmol/L; Blood Urea Nitrogen 15 mg/dL (9-20); Calcium 10.2 mg/dL (8.4-10.2); Carbon Dioxide 14 mmol/L (22-30); Chloride 107 mmol/L (98-107); Glucose 193 mg/dL (74-99); Lipase 84 U/L (23-300); Non-African American GFR(CKD) >90 (>60 ml/min/1.73 sqM); Potassium 4.6 mmol/L (3.5-5.1); Sodium 138 mmol/L (137-145); Total Bilirubin 1.5 mg/dL (0.2-1.3); Total Protein 7.6 g/dL (6.3-8.2)
--- NOTE | 2023-04-17 12:58 | US ---
EXAMINATION TYPE: US gallbladder DATE OF EXAM: 04/17/2023 COMPARISON: 10/18/2018 CLINICAL INDICATION: Male, 42 years old with history of Epigastric pain, N/V; Pain, N&V TECHNIQUE: Multiple sonographic images of the right upper quadrant are obtained. FINDINGS: EXAM MEASUREMENTS: Liver Length: 16.2 cm Gallbladder Wall: 0.1 cm CBD: 0.4 cm Right Kidney: 12.1 x 3.9 x 5.4 cm BOX TENDER NOTES: Pancreas: 2mm panc duct visualized, otherwise appeared wnl Liver: wnl Gallbladder: wnl Evidence for sonographic Rodriguez's sign: No CBD: wnl Right Kidney: Cystic lesion mid= 1.8 x 1.1 x 2.1 cm/ possible double collecting system right renal c ystic lesion stable when compared to the prior study. IMPRESSION: No significant abnormality seen.
[2023-04-17] MEDS ORDERED: HYDROmorphone 1 MG/ML 1 ML SYRINGE IVP STA (13:14)
[2023-04-17] MEDS ORDERED: METOCLOPRAMIDE 5 MG/ML 2 ML VIAL IVP STA (13:14)
[2023-04-17 13:29] VITALS: RESP 18
--- NOTE | 2023-04-17 13:59 | CT ---
EXAMINATION TYPE: CT abdomen pelvis w con DATE OF EXAM: 04/17/2023 COMPARISON: None HISTORY: abd pain CT DLP: 555 mGycm Automated exposure control for dose reduction was used. TECHNIQUE: Helical acquisition of images was performed from the lung bases through the pelvis. CONTRAST: Performed without Oral Contrast and with IV Contrast, patient injected with 100 mL of Isovue 300. FINDINGS: The lung bases are clear. Gallbladder is normal and there is no biliary ductal dilatation. There is no focal mass or organomegaly involving the liver, pancreas, spleen or adrenal glands. No solid renal mass or hydronephrosis. There is a 2.4 cm cystic mass with a calcification. It cannot be classified as a simple cyst and therefore MRI of the kidneys is recommended for further evaluation . The caliber of the abdominal aorta is normal. The bowel loops are normal in caliber and no dilatation or obstruction. No inflammatory changes ident ified in the bowel wall and mesentery. There is no free intraperitoneal air or fluid. No focal osseous lesions are seen. IMPRESSION: 1. No acute changes within the abdomen or pelvis. 2. Cystic mass within the right kidney which cannot be classified as a simple cortical cyst. MRI of t he kidneys is recommended for further evaluation.
[2023-04-17] MEDS ORDERED: ONDANSETRON 4 MG ODT STARTER PACK 2 TAB BTL PO STA (15:43)
[2023-04-17 16:30] VITALS: BP 102/69; PULSE 93; TEMP 98.8
== END 2023-04-17 16:16 | disposition home or self-care (01) ==
LOC: EC 11:29
DX: N28.1 Cyst of kidney, acquired (principal); R11.2 Nausea with vomiting, unspecified; D72.829 Elevated white blood cell count, unspecified; R74.02 Elevation of levels of lactic acid dehydrogenase [LDH]; F12.90 Cannabis use, unspecified, uncomplicated; Z20.822 Contact with and (suspected) exposure to COVID-19; Z87.891 Personal history of nicotine dependence
CPT/HCPCS: 99284 ×2; 96374 ×2; 96375 ×4; 96376 ×2; 96361 ×2; 36415; 80053; 82150; 83605; 83690; 85025; 87636; 76705; 74177; J2765; J2405; J1170 ×2; J1885; S0119; Q9967

== ENCOUNTER → 2023-06-24 | Outpatient (CLI) | payer OTHER ==
--- NOTE | 2023-06-25 14:39 | MR ---
EXAMINATION TYPE: MR kidney wo/w con DATE OF EXAM: 06/24/2023 6:36 PM CLINICAL INDICATION:Male, 43 years old with history of N28.1 CYST OF KIDNEY, ACQUIRED; [facility], Kidney cy st, abnormal CT COMPARISON: CT scan abdomen from 04/17/2023. TECHNIQUE: Multiplanar multi-sequence imaging was performed without contrast. Post contrast imaging was performed. Post IV contrast subtraction images were also submitted for review. IV Contrast: 6.5 cc Gadobutrol FINDINGS: LOWER CHEST: No gross irregularity. ABDOMEN Liver: No evidence for hepatic steatosis or cirrhosis. Gallbladder and Bile ducts: No evidence for ductal dilation, or biliary stricture or evidence of chol edocholithiasis. The gallbladder is within normal limits. Pancreas: No ductal dilation. No evidence for solid mass. Spleen: Normal for size. Adrenal glands: Unremarkable. Kidneys: No evidence for obstructive uropathy. No suspicious renal masses. Right renal high T2/low T1 signal lesion with thin septation suggested on series 401 image 23. This c orrelates with prior CT measuring up to 20 mm. No abnormal postcontrast enhancement. No solid renal n eoplasms. Stomach and Bowel: No evidence for bowel wall thickening or evidence for obstruction. Retroperitoneum/Peritoneum: No evidence of pneumoperitoneum or free fluid. Vasculature: No aortic aneurysm. Musculoskeletal: The osseous structures appear intact. Lymph Nodes: No gross evidence for lymphadenopathy. Abdominal wall: Unremarkable. 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 No solid renal neoplasms. No evidence for acute process in the abdomen or pelvis.
== END | disposition home or self-care (01) ==
LOC: RADMRIMAIN 17:39
PROVIDERS: ATTEND Student in an Organized Health Care Education/Training Program
DX: N28.1 Cyst of kidney, acquired (principal)
CPT/HCPCS: 74183; A9585